=== PATIENT | male | born 1980 | race Caucasian/White ===

== ENCOUNTER 2017-09-20 18:18 | Emergency (ER) | payer OTHER ==
[~2017-09-20] VITALS: Ht 175.3 cm; Wt 79.4 kg
[2017-09-20] MEDS ORDERED: ZANTAC150 M3 (19:27)
[2017-09-20] MEDS ORDERED: OMEPRAZOLE20 MG (19:27)
[2017-09-20] MEDS ORDERED: ZOLOFT50 MG (19:27)
[2017-09-20] MEDS ORDERED: LIPITOR20 MG (19:28)
== END 2017-09-20 20:28 | disposition home or self-care (01) ==
LOC: ER 18:18
DX: S60.572A Other superficial bite of hand of left hand, initial encounter (principal); W55.01XA Bitten by cat, initial encounter; Y93.89 Activity, other specified; Y92.89 Other specified places as the place of occurrence of the external cause; Y99.8 Other external cause status